=== PATIENT | male | born 1965 | race Caucasian/White ===

== ENCOUNTER 2017-03-06 20:32 | Emergency (ER) | payer MEDICAID ==
[~2017-03-06] VITALS: Ht 177.8 cm; Wt 75.5 kg
[2017-03-06 20:40] VITALS: BP 156/97
== END 2017-03-06 21:47 | disposition home or self-care (01) ==
LOC: ER 20:35
DX: B86 Scabies (principal); L03.116 Cellulitis of left lower limb; L03.115 Cellulitis of right lower limb; L03.114 Cellulitis of left upper limb; L03.113 Cellulitis of right upper limb